=== PATIENT | female | born 1955 | race Caucasian/White ===

== ENCOUNTER 2022-03-06 13:58 | Emergency (ER) | payer BC ==
--- NOTE | 2022-03-06 15:10 | XRAY Report ---
PROCEDURE: Ankle 3 View RT INDICATIONS: Trauma TECHNIQUE: 3 views of the ankle were acquired. COMPARISON: None FINDINGS: Bones: There is an oblique fracture of the distal fibula above the ankle mortise. There is slight wid ening of the medial aspect of the ankle mortise. No suspicious bony lesions. Soft tissues: No tibiotalar joint effusion. Achilles tendon appears normal. IMPRESSION: Oblique fracture of the distal shaft of the fibula, nondisplaced, with potential syndesm osis tear. There is subtle widening of the medial ankle mortise. Reviewed by: Edinson Baldwin MD on 03/06/2022 3:09 PM PST Approved by: Edinson Baldwin MD on 03/06/2022 3:09 PM PST Station ID: [id number]
--- NOTE | 2022-03-06 15:11 | XRAY Report ---
PROCEDURE: Foot 3 View RT INDICATIONS: Trauma TECHNIQUE: 3 views of the foot were acquired. COMPARISON: None FINDINGS: Bones: Acute oblique fracture through medial aspect of fifth proximal phalangeal base extending to fi fth MTP joint space. Slight medial displacement of fractured fragment is also noted. 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 No other fracture or dislocation. No suspicious bony lesions. Soft tissues: No tibiotalar joint effusion. Achilles tendon appears normal. IMPRESSION: Acute slightly displaced intra-articular fracture involving fifth proximal phalangeal base as above. Reviewed by: Pawel Lundberg MD on 03/06/2022 3:09 PM PST Approved by: Pawel Lundberg MD on 03/06/2022 3:09 PM PST Station ID: [id number]
--- NOTE | 2022-03-06 16:10 | ED Physician Documentation ---
History of Present Illness - Stated complaint Stated Complaint: FALL/R FEET INJ - Chief complaint Chief Complaint: Trauma Ext - Additonal information Additional information: 67-year-old female presents emergency department for evaluation of acute right foot and ankle pain. Reports that she was walking this morning and stubbed her toe on a hard edge and had pain there but did not think much of it and unfortunately later this afternoon she slipped and ice inverting her ankle and has been unable to bear weight since. No history of previous injury. She is not a diabetic. Review of Systems Constitutional: reports: Reviewed and negative Cardiac: reports: Reviewed and negative Respiratory: reports: Reviewed and negative GI: reports: Reviewed and negative Musculoskeletal: reports: Joint pain PD PAST MEDICAL HISTORY - Allergies Allergies/Adverse Reactions: Allergies Allergy/AdvReac Type Severity Reaction Status Date / Time No Known Drug Allergies Allergy Verified 03/06/22 14:41 PD ED PE EXPANDED - General General: Alert, No acute distress - Extremities Extremities: Right foot (Mild swelling tenderness and ecchymosis at the lateral malleolus. Also tenderness with ecchymosis at the distal small toe. 2+ DP pulse. Reduced range of motion of the ankle secondary to pain.) Results - Vitals Vitals: Vital Signs - 24 hr 03/06/22 14:36 Temperature 37 C Heart Rate 78 Respiratory 16 Rate Blood Pressure 119/82 H O2 Saturation 95 Oxygen O2 Source Room air - Rads (name of study) foot xr Radiology: Final report received (Acute slightly displaced intra-articular fracture involving the fifth proximal phalangeal base) ankle xr Radiology: Final report received (Oblique fracture of the distal shaft of the fibula, nondisplaced with potential syndesmosis tear. There is subtle widening of the medial ankle mortise) PD Medical Decision Making - ED course Complexity details: reviewed results, considered differential, d/w patient ED course: 67-year-old female presents emergency department for evaluation of acute right ankle and foot pain after stubbing her foot and then slipping in the ice. X- rays indicate slightly displaced fracture at the base of the proximal phalanx on the right foot. She also has an oblique fracture through the shaft of the fibula with some mild widening of the ankle mortise. She was placed in a fiberglass stirrup splint. Patient resides in [place]. She was given a CD copy of her x-rays and is advised to call her primary care doctor to obtain referral upon return to [place] on the . Routine splint care as well as emergent return precautions were discussed. Declined narcotics. Recommended Motrin and Tylenol for analgesic. Departure - Departure Disposition: 01 Home, Self Care Clinical Impression: Closed left fibular fracture Qualifiers: Encounter type: initial encounter Fibula location: shaft Fracture morphology: oblique Fracture alignment: nondisplaced Qualified Code(s): S82.435A - Nondisplaced oblique fracture of shaft of left fibula, initial encounter for closed fracture Fracture of proximal phalanx of lesser toe of right foot Qualifiers: Encounter type: initial encounter Fracture type: closed Fracture alignment: displaced Qualified Code(s): S92.511A - Displaced fracture of proximal phalanx of right lesser toe(s), initial encounter for closed fracture Condition: Stable Record reviewed to determine appropriate education?: Yes Instructions: ED Cast Care Fiberglass Ch, ED Fx Lower Ext Comments: Katy gtz when you fell and tripped today you have fractured the shaft of your distal fibula as well as having fractured the proximal phalanx of your small toe. It is likely that the only management that will be required for your fibular fracture is immobilization. These are rarely operated on. I recommend Tylenol and ibuprofen [id number] for discomfort. You can continue to take your usual medications. It is important that you call your primary care doctor on Wednesday and request referral to orthopedics for follow-up so that is available when you return to [place]. If your splint gets wet it must be replaced. If at any point you have increasing pain, fevers without a known source, numbness in your foot or severe discoloration of the toes please return to the ER or any urgent care for second evaluation
[2022-03-06 16:33] VITALS: BP 116/78
== END 2022-03-06 16:33 | disposition home or self-care (01) ==
LOC: ED 13:58
DX: S82.434A Nondisplaced oblique fracture of shaft of right fibula, initial encounter for closed fracture (principal); S92.511A Displaced fracture of proximal phalanx of right lesser toe(s), initial encounter for closed fracture; W22.09XA Striking against other stationary object, initial encounter; Y93.01 Activity, walking, marching and hiking; X50.1XXA Overexertion from prolonged static or awkward postures, initial encounter; W00.0XXA Fall on same level due to ice and snow, initial encounter
CPT/HCPCS: 99283